=== PATIENT | female | born 1950 ===

== ENCOUNTER 2021-04-30 13:36 | Day surgery (SDC) | payer MEDICARE, BC ==
[~2021-04-30] VITALS: Ht 160 cm; Wt 103.6 kg
[2021-04-30 14:20] LABS: COLLECTION METHOD CLEAN CATCH
[2021-04-30 14:35] LABS: PH 5 (5-8); SQUAMOUS EPITHELIAL 0-2 /hpf; URINE APPEARANCE Hazy; URINE BACTERIA None Seen /hpf; URINE BILIRUBIN Negative (NEGATIVE); URINE BLOOD 2+ (NEGATIVE); URINE COLOR Yellow; URINE GLUCOSE Negative (NEGATIVE); URINE KETONE Negative (NEGATIVE); URINE LEUKOCYTE ESTERASE Trace (NEGATIVE); URINE NITRATE Negative (NEGATIVE); URINE PROTEIN(semi-quant) Negative (NEGATIVE); URINE UROBILINOGEN Negative (NEGATIVE)
[2021-04-30 15:25] VITALS: BP 154/69; PULSE 76; TEMP 98.2
[2021-04-30] MEDS ORDERED: GLUCOTROL XL2.5 MG PO (15:41)
[2021-04-30] MEDS ORDERED: SINGULAIR 110 MG/TAB PO (15:41)
[2021-04-30] MEDS ORDERED: COZAAR 50MG50 MG/TAB PO (15:42)
[2021-04-30] MEDS ORDERED: PROZAC 10MG10 MG PO (15:43)
[2021-04-30] MEDS ORDERED: ZOCOR5 MG PO (15:44)
[2021-04-30] MEDS ORDERED: PRESERVISION1 SGL PO (15:44)
[2021-04-30] MEDS ORDERED: TYLENOL PM EXTR1 TA1 PO (15:45)
[2021-04-30] MEDS ORDERED: ASPIRIN 81M81 MG/TA2 PO (15:45)
[2021-04-30] MEDS ORDERED: VENTOLIN0.09 MG IH (15:46)
[2021-04-30 19:10] VITALS: BP 146/63; PULSE 81; TEMP 98.2
--- NOTE | 2021-04-30 19:10 | NUR ---
[place] [facility] [place] [facility] [place]. Pt awake and alert. Pt denies pain or nausea at this time. Daughter in law in room. Sprite given per pt request. Side rails up x2. Call light within reach.
[2021-04-30 19:25] VITALS: BP 140/53; PULSE 83
--- NOTE | 2021-04-30 19:25 | NUR ---
Pt continues to rest. Tolerating po fluids without nausea. Call light within reach.
[2021-04-30 19:40] VITALS: BP 143/61; PULSE 83
--- NOTE | 2021-04-30 19:40 | NUR ---
Pt continues to rest. Denies needs. Call light within reach.
[2021-04-30 19:55] VITALS: BP 129/44; PULSE 82
--- NOTE | 2021-04-30 19:55 | NUR ---
Pt up to restroom with stand by assist. Pt voids large amount without difficulties. Pt back to room. Soup and crackers provided per request. Call light within reach.
--- NOTE | 2021-04-30 20:20 | NUR ---
Discharge instructions reviewed. Pt voices understanding. IV site discontinued with all parts intact. Pt up to dress. Call light within reach.
--- NOTE | 2021-04-30 20:35 | NUR ---
Pt escorted to private car via wheel chair. Pt accompanied home by her daughter in law
== END 2021-04-30 20:35 | disposition home or self-care (01) ==
LOC: SDCO 13:36
PROVIDERS: Urology
DX: N20.1 Calculus of ureter (principal); E11.21 Type 2 diabetes mellitus with diabetic nephropathy; E78.5 Hyperlipidemia, unspecified; I10 Essential (primary) hypertension; J45.909 Unspecified asthma, uncomplicated; G47.33 Obstructive sleep apnea (adult) (pediatric); F32.9 Major depressive disorder, single episode, unspecified; M35.3 Polymyalgia rheumatica; Z20.822 Contact with and (suspected) exposure to COVID-19; M19.90 Unspecified osteoarthritis, unspecified site; Z79.82 Long term (current) use of aspirin; Z79.84 Long term (current) use of oral hypoglycemic drugs; Z79.899 Other long term (current) drug therapy
CPT/HCPCS: C1769; C2617; J0690; J1100; J2405; J2550; J2704; J3010; J7120; Q9967

== ENCOUNTER → 2022-05-17 | Outpatient (CLI) | payer MEDICARE, BC ==
[~2022-05-17] MED LIST: ASPIRIN 81M81 MG/TA2 PO; COZAAR 50MG50 MG/TAB PO; GLUCOTROL XL2.5 MG PO; PRESERVISION1 SGL PO; PROZAC 10MG10 MG PO; SINGULAIR 110 MG/TAB PO; TYLENOL PM EXTR1 TA1 PO; VENTOLIN0.09 MG IH; ZOCOR5 MG PO
== END ==
LOC: MHCPAIN 13:03
DX: M47.896 Other spondylosis, lumbar region (principal); M53.3 Sacrococcygeal disorders, not elsewhere classified; G57.11 Meralgia paresthetica, right lower limb
CPT/HCPCS: G0463